=== PATIENT | male | born 1955 | race Caucasian/White ===

== ENCOUNTER 2023-10-15 18:51 | Observation (INO) | payer BC, SELFPAY ==
[2023-10-15 11:27] VITALS: BP 119/67; BMI 26.6
[2023-10-15 11:59] VITALS: BP 119/67
[2023-10-15 12:00] VITALS: BP 119/67
[2023-10-15 13:46] LABS: % Basophils 0.4 % (0-2); % Eosinophils 0.5 % (0-6); % Immature Granulocytes 0.3 % (0-0.5); % Lymphocytes 23.3 % (20.5-51.1); % Monocytes 5.2 % (1.7-9.3); % Neutrophils 70.3 % (42.2-75.2); Absolute Eosinophils 0.1 10^3/uL (0-0.7); Absolute Lymphocytes 2.3 10^3/uL (1.2-3.4); Absolute Monocytes 0.5 10^3/uL (0.1-0.6); Absolute Neutrophils 6.9 10^3/uL (1.4-6.5); Hematocrit 48.8 % (39.0-52.0); Hemoglobin 17.6 g/dL (13.0-18.0); Mean Corp Hgb Conc. 36.1 g/dL (33.0-37.0); Mean Corpuscular Hgb 30.1 pg (27.0-31.0); Mean Corpuscular Volume 83.6 fL (80.0-94.0); Mean Platelet Volume 9.7 fL (7.4-10.4); Nucleated Red Blood Cells % 0 % (-); Platelet Count 190 10^3/uL (130-400); Red Blood Cell Count 5.84 10^6/uL (4.70-6.10); Red Cell Dist. Width 12.8 % (11.5-14.5); White Blood Cell Count 9.8 10^3/uL (4.8-10.8)
[2023-10-15 14:00] VITALS: BP 122/78
[2023-10-15 14:07] LABS: ALT (SGPT) 21 U/L (0-50); AST (SGOT) 28 U/L (17-59); Albumin 4.8 g/dl (3.5-5.0); Alkaline Phosphatase 87 U/L (38-126); Blood Urea Nitrogen 20 mg/dl (9-20); Calcium 10.4 mg/dl (8.4-10.2); Carbon Dioxide 20 mmol/L (22-30); Chloride 106 mmol/L (98-107); Estimated Creatinine Clearance 69 ml/min; Glucose 107 mg/dl (70-99); Magnesium 2.2 mg/dl (1.6-2.3); Potassium 4.3 mmol/L (3.5-5.1); Sodium 137 mmol/L (135-145); Total Bilirubin 1.6 mg/dl (0.2-1.3); Total Protein 7.3 g/dl (6.3-8.2); eGFR > 60.00
[2023-10-15 14:09] LABS: Troponin I < 0.012 ng/ml
--- NOTE | 2023-10-15 14:19 | ED.GENMED ---
History of Present Illness
<Kane Craig MD - Last Filed: 10/15/23 15:11>
General
Chief Complaint: Dizziness
Source: patient
Exam Limitations: none
Time Seen by Provider: 10/15/23 12:50
Nursing documentation reviewed up to this point in time: agreed with
History of Present Illness
History of Present Illness:
Patient presents to ED secondary to persistent dizziness, when he leaned forward, while playing with his grandchild yesterday afternoon. Since then, he has had intermittent dizziness with nausea sensation, and difficulty walking. Denies blurred
vision. Denies loss of sensation or weakness. Denies difficulty speech. Denies headache. Denies previous history of similar symptoms. Denies recent illness. Denies recent change in medications or diet.
Review of Systems
<Kane Craig MD - Last Filed: 10/15/23 15:11>
Review of Systems
Allergies reviewed?: Yes
All Other Systems: ROS reviewed and negative except as documented in HPI and ROS
Constitutional: Reports no symptoms
EENT: Reports no symptoms
Respiratory: Reports no symptoms
Cardiac: Reports no symptoms
ABD/GI: Reports no symptoms
Musculoskeletal: Reports no symptoms
Skin: Reports no symptoms
Neurological: Reports dizzy
Phy Exam
<Kane Craig MD - Last Filed: 10/15/23 15:11>
Physical Exam
Physical Exam:
Physical Exam
General: mild distress, not acutely ill. afebrile
Head: nc/at. eomi. no nystagmus noted.
Neck: supple. no meningeal signs.
Heart: s1/s2 regular rate and rhythm, no murmur. equal radial pulses.
Lungs: no acute respiratory distress. clear bilaterally
Abdomen: normal bowel sounds. not tender.
Neuro: alert and oriented. no focal neurological deficits
Skin: no rash
Psychiatric: well kept. interactive and cooperative
Extremities: no edema. no calf tenderness
Course
<Kane Craig MD - Last Filed: 10/15/23 15:11>
Orders/Labs/Results
Orders:
Orders
10/15/23 13:24
Electrocardiogram (*1) Urgent
Reason for Study: Vertigo / Dizzy
EKG- Treatment ONCE
10/15/23 13:29
Complete Blood Count/With Diff Urgent
Comprehensive Metabolic Panel Urgent
Magnesium Urgent
Troponin I Urgent
10/15/23 14:46
CT Head & Neck Angio W/wo IV Urgent
Comment:
Reason For Exam: dizziness w ataxia and posterior headache
10/15/23 14:48
Meclizine [Antivert] 25 mg PO NOW STA
10/15/23 17:03
0.9% Sodium Chloride 1000 ml [Nss] 1,000 ml IV BOLUS
Ondansetron Injectable [Zofran] 4 mg IV NOW STA
Abnormal Lab Results
10/15/23
13:29
Absolute Neuts (auto) 6.9 H 10^3/uL
(1.4-6.5)
Carbon Dioxide 20 L mmol/L
(22-30)
Glucose 107 H mg/dl
(70-99)
Calcium 10.4 H mg/dl
(8.4-10.2)
Total Bilirubin 1.6 H mg/dl
(0.2-1.3)
10/15/23 13:29
10/15/23 13:29
Vital Signs
Initial and Last Documented VS:
Initial Vital Signs
Temp Pulse Resp BP Pulse Ox
98.2 F 68 18 119/67 99
10/15/23 11:27 10/15/23 11:27 10/15/23 11:27 10/15/23 11:27 10/15/23 11:27
Last Documented Vital Signs
Temp Pulse Resp BP Pulse Ox
98.2 F 72 16 122/78 99
10/15/23 11:27 10/15/23 14:00 10/15/23 14:00 10/15/23 14:00 10/15/23 14:00
<Vadim Rm, DO - Last Filed: 10/15/23 17:08>
Orders/Labs/Results
Orders:
Orders
10/15/23 13:24
Electrocardiogram (*1) Urgent
Reason for Study: Vertigo / Dizzy
EKG- Treatment ONCE
10/15/23 13:29
Complete Blood Count/With Diff Urgent
Comprehensive Metabolic Panel Urgent
Magnesium Urgent
Troponin I Urgent
10/15/23 14:46
CT Head & Neck Angio W/wo IV Urgent
Comment:
Reason For Exam: dizziness w ataxia and posterior headache
10/15/23 14:48
Meclizine [Antivert] 25 mg PO NOW STA
10/15/23 17:03
0.9% Sodium Chloride 1000 ml [Nss] 1,000 ml IV BOLUS
Ondansetron Injectable [Zofran] 4 mg IV NOW STA
Abnormal Lab Results
10/15/23
13:29
Absolute Neuts (auto) 6.9 H 10^3/uL
(1.4-6.5)
Carbon Dioxide 20 L mmol/L
(22-30)
Glucose 107 H mg/dl
(70-99)
Calcium 10.4 H mg/dl
(8.4-10.2)
Total Bilirubin 1.6 H mg/dl
(0.2-1.3)
10/15/23 13:29
10/15/23 13:29
Vital Signs
Initial and Last Documented VS:
Initial Vital Signs
Temp Pulse Resp BP Pulse Ox
98.2 F 68 18 119/67 99
10/15/23 11:27 10/15/23 11:27 10/15/23 11:27 10/15/23 11:27 10/15/23 11:27
Last Documented Vital Signs
Temp Pulse Resp BP Pulse Ox
98.2 F 72 16 122/78 99
10/15/23 11:27 10/15/23 14:00 10/15/23 14:00 10/15/23 14:00 10/15/23 14:00
<Kane Craig MD - Last Filed: 10/15/23 15:11>
MDM/Problems Addressed
MDM/Problems Addressed:
Discussed with on-call neurology, Dr. Tao. Recommends obtaining CT head along with CT angiogram of the head and neck, especially in light of posterior headache along with ataxia. Patient empirically given meclizine. Patient to be reassessed
after CT scan is performed. If patient remains symptomatic, patient may need to stay in the hospital for further evaluation and treatment, including MRI as an inpatient.
<Vadim Rm DO - Last Filed: 10/15/23 17:08>
*Critical Care Note
Total Time (30-74mins, 75-104mins- exclusive of procedures): Not Applicable
<Vadim Rm DO - Last Filed: 10/15/23 17:08>
Update Note
Update Note:
Care of patient was transitioned pending CT angiogram. CT angiogram negative for acute mass, bleed or blockage. On reassessment, patient still symptomatic and has mild ataxia. Will admit for further evaluation
ED Attending Note
<Kane Craig MD - Last Filed: 10/15/23 15:11>
-
Portions of this chart may have been created with voice recognition software.� Occasional wrong word or��sound alike� substitutions may have occurred due to the inherent limitations of voice recognition software.
Discharge Plan
Departure
Patient Disposition: Admit
Date of Disposition: 10/15/23
Time of Disposition: 17:08
Admit to: Telemetry
Presentation/result/management discussed w/ accepting MD/DO: Hospitalist
Discharge Problem:
Ataxia
Referrals:
UNKNOWN - PT DOES,NOT KNOW [Family Provider] -
Interventions
Interventions:
*Risk Screen - Suicide Last Done: 10/15/23 11:27
*General Assessment Last Done: 10/15/23 11:27
*Neglect/Abuse Screening Last Done: 10/15/23 11:27
ED- Fall Risk Assessment Last Done: 10/15/23 11:27
*ED COVID-19 Vaccine History Last Done: 10/15/23 11:27
ED- Neurological Assessment Last Done: 10/15/23 11:27
ED Swallowing Screen Last Done: 10/15/23 11:25
Discharge Date and Time
Print Language: SLOVENIAN
[2023-10-15] MEDS: ANTIVERT 25 MG PO (14:55)
[2023-10-15] MEDS: LOW STRENGTH ASPIRIN 324 MG PO (17:16)
[2023-10-15] MEDS: NSS 1000 IV (17:18)
[2023-10-15] MEDS: ZOFRAN 4 MG IV (17:18)
--- NOTE | 2023-10-15 17:23 | HPS.HSE ---
Family Physician
-
Family Physician: NOT KNOW UNKNOWN - PT DOES
Chief Complaint
-
Dizziness, also recent tick bite 3 days ago
History of Present Illness
68-year-old male complaining of dizziness when leaning forward playing with his 6-month-old grandchild yesterday afternoon on the floor. He reports he had a sensation of dizziness while on the floor with her. He was able to pick her up ,but wanted
to sit down as he was afraid he would fall. He reports the symptoms were on and off during the night. When getting up from the bed to walk to the bathroom he felt dizzy and had ataxic gait. He denies leaning to 1 side versus the other. He states
when he approached the toilet he felt like he was going to pass out. He thinks he had some posterior neck pain not like typical headaches. He states this felt similar to 1 episode when he was on a boat and had motion sickness. I am able to elicit
dizziness with EOMs at bedside. He has chronic neck pain with chronic right shoulder pain due to right rotator cuff tear. He also reports being bit by a tick right posterior rib 3 days ago tick was not engorged area does not have any rash, fever,
swelling or joint pain . He denies any focal weakness, speech difficulty, blurred vision, sore throat, chest pain, palpitations, cough, shortness of breath, abdominal pain, nausea, vomiting, diarrhea, recent illness.
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
Medical History
Past Medical History
Past Medical History: Reports Other
Additional Past Medical History:
GERD
chronic right eye central vision loss
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
BPH, erectile dysfunction
Past Surgical History: Reports Other
Additional Past Surgical History:
Vasectomy
Knee surgery
Social History
Tobacco: Non-smoker
Alcohol: None
Drug: None
Personal:
Living: With Family
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
Family History
Family History: Other (Father age 99 unsure he was estranged from, mother multiple myeloma, 3 paternal aunts dementia)
Allergies / Home Medications
Allergies reflects when Allergies were last updated in [employer] [facility] [employer] [facility].
Home Medications with original date entered in [facility] [employer] [facility]
Allergy/Medication List:
Allergies
Allergy/AdvReac Type Severity Reaction Status Date / Time
diazepam [From Valium] Allergy Nausea / Verified 10/15/23 11:25
Vomiting
doxycycline [From Vibramycin] Allergy Rash Verified 10/15/23 11:25
Home Medications
Garlique 1 tab PO DAILY 10/15/23
ibuprofen 200 mg tablet 800 mg PO Q8HPRN PRN mild pain 10/15/23
pantoprazole 40 mg tablet,delayed release 40 mg PO DAILY 10/15/23
sildenafil (pulm.hypertension) 20 mg tablet 20 mg PO DAILYPRN PRN ed 10/15/23
terazosin 5 mg capsule 5 mg PO HS 10/15/23
Review of Systems
-
History Source: Patient and Family (Son at bedside)
A 12 point ROS was completed and negative except as noted: Yes
Constitutional: Denies Fever, Fatigue or Chills
EENT: Reports Other (Lightheadedness sensation); Denies Sore Throat or Runny Nose
Respiratory: Denies Cough or Trouble Breathing
Cardiac: Denies Chest Pain, Diaphoresis, Palpitations or Syncope
Abdomen/GI: Denies Abdominal Pain, Nausea, Vomiting, Diarrhea, Constipated, Bloody Stools or Black Stools
: Denies Dysuria, Frequency, Flank Pain, Incontinence, Difficulty Voiding, Urgency or Bleeding
Musculoskeletal: Denies Joint Pain or Edema
Skin: Reports Other (Tick bite right posterior rib 3 days old small tiny abrasion to area no surrounding bull's-eye erythema or warmth); Denies Itching or Rash
Neurological: Reports Dizzy and Headache (Possible posterior cervical); Denies Weakness or Numbness
Endocrine: Reports No Symptoms
Hematologic/Lymphatic: Reports No Symptoms
Psych: Reports Calm
Physical Exam
Vital Signs
Vital Signs
Temp Pulse Resp BP Pulse Ox
98.2 F 72 16 122/78 99
10/15/23 11:27 10/15/23 14:00 10/15/23 14:00 10/15/23 14:00 10/15/23 14:00
Physical Exam
General: Comfortable
HEENT: NormoCephalic, Anicteric, Moist mucous membranes, Atraumatic, PERRLA, [place] Conjunctivae, No Ptosis, Neck Nontender (Negative nuchal rigidity) and Other (EOMs intact negative nystagmus appreciated)
Respiratory: Clear; No Wheezes, Rales or Rhonchi
Cardiac: S1/S2 and Regular Rhythm; No Murmur, Rub, Gallop or Peripheral Edema
Breast: Deferred by me
GI: Soft, Non Tender, Non Distended, Normal Bowel Sounds and No Hepatosplenomegaly
Rectal: Deferred by Provider
Genito-urinary: Deferred by me
Musculoskeletal: No Clubbing, No Cyanosis and No Edema
Skin: Warm, Dry and Other (Tick bite right posterior rib 3 days old small tiny abrasion to area no surrounding bull's-eye erythema or warmth); No Rash
Neuro: AO x 3, No Motor Deficits, Nonfocal/grossly intact, Cranial Nerves Intact and No Sensory Deficits; No Slurred Speech, Facial Droop, Tremors or Sedated
Psych: Calm
Laboratory Results
-
10/15/23 13:29
10/15/23 13:29
Laboratory Results
Total Bilirubin 1.6 mg/dl (0.2-1.3) H 10/15/23 13:29
AST 28 U/L (17-59) 10/15/23 13:29
ALT 21 U/L (0-50) 10/15/23 13:29
Alkaline Phosphatase 87 U/L (38-126) 10/15/23 13:29
Troponin I < 0.012 ng/ml 10/15/23 13:29
Impression/Plan
-
Impression/plan:
Observation telemetry
#Ataxia concern for CVA vs BPPV /Incidental Chiari I malformation
-Consult Neurology
-MRI brain in a.m.
-will give scopalamine patch now
-Aspirin 324 mg given in ER, aspirin 81 mg daily
-Check lipid profile, HgbA1c
-Check vitamin B12
-Orthostatic vitals
-PT for vestibular therapy if MRI brain negative
-OT/case management consult
CT head and neck angio:
1. Chiari I malformation
2. No evidence of intracranial arterial stenosis or occlusion
3. Minimal atherosclerotic plaque in both intracranial internal carotid arteries
4. No evidence of infarct
5. No carotid artery, vertebral artery stenosis, occlusion or dissection
6. Severe multilevel DDD and facet joint arthrosis of the cervical spine causing mild multilevel spinal cord compression C5/C6 and C6/C7,
mild central canal stenosis and severe neural foraminal narrowing left-sided C2/C3, C3/C4, C4/C5, C5/C6, C6/C7.
7. Right-sided foraminal narrowing at C4/C5, C5/C6
EKG NSR 66 bpm, QTc 396 MS
#Severe multilevel DDD cervical spine left/right with foraminal narrowing per CT
#HX ddd lumbar/ thoracic
-hx of spinal fusions lumbar thoracic
#Chronic right eye central vision loss
Patient follows with neuro-ophthalmology in [place] where he lives
#GERD
-Continue Protonix 40 mg daily
#BPH
# erectile dysfunction
-Continue terazosin blood pressure stable
-Hold sildenafil as needed
DVT prophylaxis
SCDs
Full code
[2023-10-15] MEDS: TRANSDERM-SCOP 1 PATCH TRANSDERM (19:03)
[2023-10-15 19:50] VITALS: BP 129/68; BMI 27.8
--- NOTE | 2023-10-15 20:00 | PTCARENOTE ---
Pt arrived to room 419-01. Pt ambulated to bed with x1 assistance. Pt AAOx3, VSS. Pt with no complaints of n/v or dizziness. Pt c/o of no pain. Daughter at bedside. No signs of acute distress, respirations regular. Oriented to room, call terrell placed
within reach. Bed alarm placed.
[2023-10-15] MEDS: HYTRIN 5 MG PO (22:14)
[2023-10-15 23:00] VITALS: BP 130/56
[2023-10-16 03:00] VITALS: BP 110/62
[2023-10-16 07:35] VITALS: BP 113/67; BP 119/63; BP 122/67; PULSE 60; PULSE 71; PULSE 80
[2023-10-16 07:58] LABS: % Basophils 0.4 % (0-2); % Eosinophils 1.5 % (0-6); % Immature Granulocytes 0.3 % (0-0.5); % Lymphocytes 28.9 % (20.5-51.1); % Monocytes 6.3 % (1.7-9.3); % Neutrophils 62.6 % (42.2-75.2); Absolute Eosinophils 0.1 10^3/uL (0-0.7); Absolute Lymphocytes 2.2 10^3/uL (1.2-3.4); Absolute Monocytes 0.5 10^3/uL (0.1-0.6); Absolute Neutrophils 4.7 10^3/uL (1.4-6.5); Hematocrit 42.8 % (39.0-52.0); Mean Corpuscular Hgb 30.8 pg (27.0-31.0); Mean Corpuscular Volume 87.9 fL (80.0-94.0); Mean Platelet Volume 9.3 fL (7.4-10.4); Nucleated Red Blood Cells % 0 % (-); Platelet Count 138 10^3/uL (130-400); Red Blood Cell Count 4.87 10^6/uL (4.70-6.10); Red Cell Dist. Width 12.8 % (11.5-14.5); White Blood Cell Count 7.5 10^3/uL (4.8-10.8)
[2023-10-16 08:03] LABS: Blood Urea Nitrogen 17 mg/dl (9-20); Calcium 9.2 mg/dl (8.4-10.2); Carbon Dioxide 26 mmol/L (22-30); Chloride 109 mmol/L (98-107); Estimated Creatinine Clearance 59 ml/min; Glucose 89 mg/dl (70-99); HDL Cholesterol 50 mg/dl; LDL Cholesterol, Calculated 86 mg/dl; Potassium 3.8 mmol/L (3.5-5.1); Sodium 138 mmol/L (135-145); Total Cholesterol 155 mg/dl (50-199); Triglyceride 95 mg/dl (10-149); Very Low Density Lipoprotein 19 mg/dl (0-30); eGFR > 60.00
[2023-10-16] MEDS: LOW STRENGTH ASPIRIN 81 MG PO (08:57)
[2023-10-16] MEDS: PROTONIX 40 MG PO (08:57)
[2023-10-16 09:38] LABS: Glycohemoglobin (HgbA1c) 5.3 % (4.0-5.6)
[2023-10-16 10:01] LABS: Vitamin B12 476 pg/ml (239-931)
--- NOTE | 2023-10-16 10:04 | W.PN.HOSP.TC ---
Today's Communication/Plan
-
Follow-up MRI and TTE
Continue with scopolamine patch and vestibular therapy
Possible discharge after imaging and neurology eval
Assessment / Plan
Assessment / Plan
#Strokelike symptoms
#Vertigo
#Ataxia
#Chiari I malformation
-Symptoms improved overnight with scopolamine patch, no FND
-Suspect that this is BPPV based off of the history and response to the scopolamine
-CT and CTA head and neck were without any acute or chronic neurovascular findings
-No clear signs of Chiari I malformation on imaging though do not suspect this is related to his presentation
-Neurological cardiovascular workup pending, no events on telemetry
-Neurology consulted
Plan
-Follow-up MRI brain, TTE
-Continue physical therapy with [facility]
-Continue scopolamine patch daily for symptoms
-DC aspirin if imaging negative
#Bilateral upper extremity paresthesias
#Cervical DDD -- severe, with foraminal stenosis on CT
#H/O thoracolumbar spinal fusions
-Complains of intermittent bilateral paresthesias down into his hands
-Suspect that this is related to foraminal stenosis of the cervical vertebra
-Neurological exam currently normal for sensory and motor deficits
-Should follow-up with outpatient neurology/neurosurgery
#Chronic right eye central vision loss
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
-Follows with neuro-ophthalmology in [place]
#GERD
-Stable on Protonix
#BPH
#Erectile dysfunction
-Terazosin and sildenafil
DVT prophylaxis: SCDs
Diet: Regular
CODE STATUS: Full code
Anticipated Discharge: Within 24 hours
Subjective/Interval History
-
Date of Service: October 16, 2023
No acute events overnight. He states that he feels much better today and has not had any major recurrences of his symptoms. He denies any fevers or chills, chest pains, shortness of breath, nausea/vomiting/diarrhea, urinary issues. He does not
have any paresthesias, denies facial droop and muscle weakness.
Pending MRI and TTE. Consideration for discharge if studies were performed and normal
Objective Data
-
Labs:
Laboratory Results
10/16/23
06:46
WBC 7.5
Hgb 15.0
Hct 42.8
Plt Count 138 D
Sodium 138
Potassium 3.8
Chloride 109 H
Carbon Dioxide 26
BUN 17
Creatinine 1.1
Glucose 89
Calcium 9.2
Vital Signs:
Vital Signs
Temp Pulse Resp BP Pulse Ox
97.6 F 60 16 119/63 100
10/16/23 07:35 10/16/23 07:35 10/16/23 07:35 10/16/23 07:35 10/16/23 07:35
Review of Systems
-
History Source: Patient
All other systems: Reviewed and negative
Physical Exam
-
General: Comfortable, Respiratory Distress and Conversant
HEENT: Normocephalic, Atraumatic, Moist Mucous Membranes and Anicteric
Respiratory: Clear to Auscultation and Non Labored Respirations; Negative Wheezes, Rales or Rhonchi
Cardiac: Regular Rhythm (Borderline bradycardic rate); Negative Murmur, Rub or Gallop
GI: Soft, Nontender, Nondistended and Normal Bowel Sounds
Musculoskeletal: No Clubbing, No Cyanosis and No Edema
Skin: Warm and Dry; Negative Rash or Jaundice
Neuro: AO x 3, Nonfocal/Grossly Intact, Central Nerve's Intact and Other (No nystagmus, EOMI, PERRL); Negative Tremors
Data Reviewed
-
Labs: Labs Reviewed by me
--- NOTE | 2023-10-16 10:54 | CM ---
Addendum entered by Shiloh Dickey 10/16/23 13:54:
CM faxed insurance card to admissions.
Original Note:
Patient seen bedside with , initial assessment completed. Patient resides in a two story home with a first floor set up, denies use of DME, VN in past (2009 after knee replacement), denies SNF. Patient [facility], pharmacy [facility]
in [place]. Patient confirms prescription coverage, denies food, housing/utility, transportation insecurities at home. Patient for Echo tomorrow. RIZZO reviewed, signed, placed in chart. CM will continue to follow for all discharge planning needs.
Plan; home no needs, watch for PT/OT evals for recommendations upon discharge.
[2023-10-16 11:21] VITALS: BP 120/60
[2023-10-16 11:32] VITALS: BP 119/77; PULSE 69; O2SAT 94
[2023-10-16 11:35] VITALS: BP 119/77; PULSE 69; O2SAT 94
--- NOTE | 2023-10-16 12:51 | CON.NEURO4 ---
Consultation - Neurology 4
-
CONSULTING PHYSICIAN: Sarmad Tao MD neurology
REFERRING PHYSICIAN: Hospitalist
DICTATED BY: Sarmad Tao MD
DATE/TIME OF REQUEST: October 15, 2023
DATE/TIME OF CONSULTATION: October 16, 2023
Reason for Consultation: Generalized weakness
History of Present Illness:
68-year-old male complaining of dizziness when leaning forward playing with his 6-month-old grandchild yesterday afternoon on the floor. He reports he had a sensation of dizziness while on the floor with her. He was able to pick her up ,but wanted
to sit down as he was afraid he would fall. He reports the symptoms were on and off during the night. When getting up from the bed to walk to the bathroom he felt dizzy with difficulty walking and was unsteady and incoordinated . He denies
leaning to 1 side versus the other. He states when he approached the toilet he felt like he was going to pass out. He thinks he had some posterior neck pain not like typical headaches. He states this felt similar to 1 episode when he was on a
boat and had motion sickness. I am able to elicit dizziness with EOMs at bedside. He has chronic neck pain with chronic right shoulder pain due to right rotator cuff tear. He also reports being bit by a tick right posterior rib 3 days ago tick
was not engorged area does not have any rash, fever, swelling or joint pain . He denies any focal weakness, speech difficulty, blurred vision, sore throat, chest pain, palpitations, cough, shortness of breath, abdominal pain, nausea, vomiting,
diarrhea, recent illness.
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
Past Medical History:
Surgical History:
Family History:
Social History:
Allergies:
Home Medications:
Review of Symptoms:
Patient denies any fever, headache, chest pain, shortness of breath, GI or symptoms.
�Per the HPI.�All systems are reviewed negative except above.
�- Remove any of these problems that patient may have complained about in the HPI.
�- If patient is unresponsive, intubated or demented, say 'Per the HPI. I am unable to obtain a complete review of systems�because of patient's inability to provide history.'
Vital Signs:
The patient has a blood pressure of ( ) , heart rate ( ) , temperature ( ) , respiratory rate ( ) and a pulse ox of ( ) on
(room air / oxygen by nasal cannula / ventilator).
Physical Exam:
The patient is afebrile, heart sounds S1 and S2 are (regular / irregular), and chest is clear to auscultation bilaterally.
- If not clear, describe.
NIH Stroke Scale (if applicable):
I performed the NIH stroke scale on the patient on (date & time). The patient scored ( ) points on the NIH stroke scale assessment, which were assigned as follows:
Neurologic Examination:
The patient is awake, alert and oriented x 3. (He/She) is able to follow commands and answer questions appropriately. There is no aphasia or dysarthria. On cranial nerve assessment, pupils are 3 mm bilateral, round and reactive to light and
accommodation. Visual galvan are full. Extraocular movements are intact. Facial sensations are intact and bilaterally symmetrical, there is no facial asymmetry. Hearing is intact bilaterally to normal conversation volume. Tongue palate and uvula
are midline. Sternocleidomastoid strengths are full bilaterally. Motor strengths are 5/5 bilateral upper and lower extremities on medical research [place] scale. There is no drift or involuntary movement noted. Deep tendon reflexes are 2+ bilateral
upper and lower extremities and Babinski is absent bilaterally. Sensations of pain, touch, temperature and vibration are intact and bilaterally symmetrical. There was no extinction noted on double simultaneous stimulation. Coordination is intact by
finger to nose bilaterally.
Lab Results:
Neuro Imaging:
Impression:
(Mr. / MsDamián GHOSH is a 68 year old M who has presented to the hospital with (symptoms/chief complaint) of generalized weakness following hyperextension of the neck
Differentials for the patient's presentation include:
1. Cervical spondylosis with cord compression
2. Vertebrobasilar insufficiency
3.
4.
Patient has the following risk factors for their symptoms:
IV Tenecteplase/IAT candidacy
Recommendations:
1. MRI of C-spine
2. Aspirin
3.
Discussed patient care with:
Vital Signs and Labs
-
Vital Signs and Labs:
Vital Signs
Temp Pulse Resp BP Pulse Ox
36.5 C 65 18 120/60 97
10/16/23 11:21 10/16/23 11:21 10/16/23 11:21 10/16/23 11:21 10/16/23 11:21
Lab Results
10/16/23 06:46
10/16/23 06:46
Sodium 138 mmol/L (135-145) 10/16/23 06:46
Potassium 3.8 mmol/L (3.5-5.1) 10/16/23 06:46
BUN 17 mg/dl (9-20) 10/16/23 06:46
Glucose 89 mg/dl (70-99) 10/16/23 06:46
Calcium 9.2 mg/dl (8.4-10.2) 10/16/23 06:46
LDL Cholesterol, Calc 86 mg/dl 10/16/23 06:46
Vitamin B12 476 pg/ml (239-931) 10/16/23 06:46
Medications
-
Active Medications
Generic Name Dose Route Start Last Admin
Trade Name Freq PRN Reason Stop Dose Admin
Acetaminophen 650 mg 10/15/23 19:53
Acetaminophen 325 Mg Tablet PO 11/12/23 19:52
Q4HPRN PRN
mild pain/HALL/temp> 100.4F
Aspirin 81 mg 10/16/23 08:00 10/16/23 08:57
Aspirin 81 Mg Chewable Tablet PO 11/13/23 07:59 81 mg
DAILY YOLANDA Administration
Pantoprazole Sodium 40 mg 10/16/23 08:00 10/16/23 08:57
Pantoprazole 40 Mg Delayed Release Tablet PO 11/13/23 07:59 40 mg
DAILY YOLANDA Administration
Sodium Chloride 0 flush 10/15/23 21:00
Sodium Chloride 0.9% (Flush) Syringe IV 11/12/23 20:59
PER PROTOCOL YOLANDA
Terazosin HCl 5 mg 10/15/23 22:00 10/15/23 22:14
Terazosin 5 Mg Capsule PO 11/12/23 21:59 5 mg
HS YOLANDA Administration
Home Medications
�Medication �Instructions �Recorded
Garlique 1 tab PO DAILY Supplement 10/15/23
ibuprofen 200 mg tablet 800 mg PO Q8HPRN PRN mild pain 10/15/23
pantoprazole 40 mg tablet,delayed 40 mg PO DAILY Gastrointestinal 10/15/23
release Issue
sildenafil (pulm.hypertension) 20 20 mg PO DAILYPRN PRN ed 10/15/23
mg tablet
terazosin 5 mg capsule 5 mg PO HS Urinary Issue 10/15/23
[2023-10-16 15:28] VITALS: BP 123/62
--- NOTE | 2023-10-16 15:43 | W.DCSUMMARY ---
Discharge Summary
Discharge Data
Date of Admission: 10/15/23
Date of Discharge: 10/16/23
-
Pending Results: No
Hospital Course
CVA r/o with symptoms of ataxia and vertigo. (-)CT and CTA head and neck, (-)MRI for CVA. Both studies showed severe cervical DDD with foraminal stenosis, Chiari I malformation. H/O intermittent b/l UE tingling likely related to DDD. Neurology
evaluated. (-)telemetry.
Should follow up with PCP in [place] and consider neurology and neurosurgical eval for cervical DDD.
Rx - scopolamine patch q72hr PRN for vertigo
Discharge Plan
-
Patient Disposition: Home (Routine Discharge)
Discharge Diagnosis/Procedures: Vertigo, likely BPPV
R/O CVA
Cervical DDD with severe foraminal stenosis
Condition: Good
Diet: No restrictions
Activity: As tolerated
Driving Restrictions: As prior to admission
Blood Work: N/A
Others Tests: N/A
Referrals:
UNKNOWN - PT DOES,NOT KNOW [Family Provider] -
Prescriptions:
New
scopolamine base 1 mg over 3 days patch 3 day
1 patch transdermal Q72H PRN (Reason: Vertigo) Qty: 4 0RF
Continued
terazosin 5 mg Capsule
5 mg PO HS
pantoprazole 40 mg Tablet,Delayed Release (Dr/Ec)
40 mg PO DAILY
ibuprofen 200 mg Tablet
800 mg PO Q8HPRN MDD 2400 mg PRN (Reason: mild pain)
sildenafil (pulm.hypertension) 20 mg tablet
20 mg PO DAILYPRN PRN (Reason: ed)
Garlique tablet
1 tab PO DAILY
Discharge Orders:
Discharge Patient (As Directed); Ordered 10/16/23
Ordered By: Magdiel Lowery
Discharge Date and Time
Print Language: ROMANSH
== END 2023-10-16 17:43 | disposition home or self-care (01) ==
LOC: 4 WEST ACU 18:51
PROVIDERS: Clinical Nurse Specialist Family Health; ADMITTING PHYSICIAN Internal Medicine; CONSULT PHYSICIAN Psychiatry & Neurology Neurology; EMERGENCY PHYSICIAN Emergency Medicine
DX: R42 Dizziness and giddiness (principal); R26.2 Difficulty in walking, not elsewhere classified; R51.9 Headache, unspecified; G93.5 Compression of brain; R26.0 Ataxic gait; M48.02 Spinal stenosis, cervical region; M50.022 Cervical disc disorder at C5-C6 level with myelopathy; M47.12 Other spondylosis with myelopathy, cervical region; M50.021 Cervical disc disorder at C4-C5 level with myelopathy; K21.9 Gastro-esophageal reflux disease without esophagitis; N40.0 Benign prostatic hyperplasia without lower urinary tract symptoms; H46.9 Unspecified optic neuritis; H54.61 Unqualified visual loss, right eye, normal vision left eye; N52.9 Male erectile dysfunction, unspecified; G89.29 Other chronic pain; M25.511 Pain in right shoulder; Z98.1 Arthrodesis status; Z88.8 Allergy status to other drugs, medicaments and biological substances; Z79.82 Long term (current) use of aspirin
CPT/HCPCS: 70496; 70498; 72141; 80048; 80053; 80061; 82607; 83036; 83735; 84484; 85025; 93005; 96361; 96374; 97163; 97167; 99285; G0378; Q9967